=== PATIENT | male | born 1970 | race Caucasian/White ===

== ENCOUNTER 2024-10-09 07:29 | Emergency (ER) | payer MEDICAID ==
[~2024-10-09] VITALS: Ht 177.8 cm; Wt 82.0 kg
[2024-10-09 07:34] VITALS: O2SAT 99
[2024-10-09 08:10] VITALS: TEMP 36.78072; O2SAT 97
[2024-10-09 08:24] VITALS: BP 147/110; PULSE 62; RESP 16
[2024-10-09] MEDS: SODIUM CHLORIDE 0.9% 1,000 ML IV ONE (08:24)
[2024-10-09] MEDS: MORPHINE SULFATE 4 MG/ML INJ (FOR IV/IM USE) IV STA (08:24)
[2024-10-09] MEDS: ONDANSETRON HCL 4MG/2ML INJ IV STA (08:24)
[2024-10-09] MEDS ORDERED: ONDANSETRON HCL 4MG/2ML INJ IV STA (10:23)
[2024-10-09] MEDS ORDERED: MORPHINE SULFATE 4 MG/ML INJ (FOR IV/IM USE) IV STA (10:23)
[2024-10-09 11:43] LABS: BASOPHILS % 0.5 % (0.0-2.0); EOSINOPHILS % 2.7 % (0.0-5.0); HEMATOCRIT. 39.2 % (42.0-52.0); HEMOGLOBIN. 12.9 g/dL (14.0-18.0); LYMPHOCYTES % 21.3 % (20.0-50.0); MEAN CORPUSCULAR HEMOGLOBIN 28.2 pg (28.0-32.0); MEAN CORPUSCULAR VOLUME 85.6 fL (80.0-94.0); MEAN PLATELET VOLUME 7.4 fl (7.4-10.4); MONOCYTES % 6.6 % (2.0-8.0); NEUTROPHILS % 68.9 % (40.0-76.0); PLATELET 223 x1000/uL (130-400); RED BLOOD CELL COUNT 4.58 mill/uL (4.7-6.1); RED CELL DISTRIBUTION WIDTH 13.8 % (11.6-14.6); WHITE BLOOD COUNT 9.4 x1000/uL (4.5-11.0)
[2024-10-09 11:56] LABS: PROTHROMBIN TIME 11.4 sec (9.6-11.0)
[2024-10-09 12:09] LABS: CHLORIDE 105 mEq/L (98-107); POTASSIUM 3.4 mEq/L (3.5-5.1); SODIUM 141 mEq/L (136-145)
[2024-10-09 12:10] LABS: CARBON DIOXIDE 27 mEq/L (21-32)
[2024-10-09 12:11] LABS: CALCIUM 9.8 mg/dL (8.7-10.4)
[2024-10-09] MEDS: MORPHINE SULFATE 4 MG/ML INJ (FOR IV/IM USE) IV NR (12:13)
[2024-10-09 12:15] LABS: CREATININE 0.7 mg/dL (0.6-1.3); GLUCOSE 97 mg/dL (70-105); UREA NITROGEN BLOOD 22 mg/dL (9-23)
== END 2024-10-09 15:49 | disposition home or self-care (01) ==
LOC: ER 07:41 → EDBEDREQTM 10:26 → EDBEDREQ 10:26 → ER 15:49
DX: S42.412A Displaced simple supracondylar fracture without intercondylar fracture of left humerus, initial encounter for closed fracture (principal); W19.XXXA Unspecified fall, initial encounter; Y93.89 Activity, other specified; Y92.89 Other specified places as the place of occurrence of the external cause; Y99.8 Other external cause status
CPT/HCPCS: 80048; 85025; 85610; 36415; 72040; 73030; 73060; 73070; 29105; 96361; 96374; 96375; 96376; 99284; J2405; J2270; J7030; Z7610 ×3

== ENCOUNTER 2025-07-06 11:29 | Emergency (ER) | payer MEDICAID ==
[~2025-07-06] VITALS: Ht 170.2 cm; Wt 99.0 kg
[2025-07-06 11:38] VITALS: TEMP 36.9; O2SAT 99
[2025-07-06] MEDS: IBUPROFEN 600MG TABLET PO ONE ×2 (12:00→13:30)
[2025-07-06 13:51] VITALS: BP 132/89; PULSE 68; RESP 16; O2SAT 100
== END 2025-07-06 14:00 | disposition home or self-care (01) ==
LOC: ER 12:20
DX: S63.501A Unspecified sprain of right wrist, initial encounter (principal); W19.XXXA Unspecified fall, initial encounter; Y93.89 Activity, other specified; Y92.89 Other specified places as the place of occurrence of the external cause; Y99.8 Other external cause status
CPT/HCPCS: 99283; 73110; A6449